=== PATIENT | female | born 1955 | race Caucasian/White ===

== ENCOUNTER 2018-11-03 06:48 | Inpatient (IN) ==
[2018-11-03] MEDS ORDERED: ceFAZolin 2 GM IV; once IV.SIG SCH (08:00)
[2018-11-03] MEDS ORDERED: Chlorhexidine Gluconate 2% 1 Pack (2 Cloths) TOPICAL ONE (08:00)
[2018-11-03] MEDS ORDERED: Metoprolol Tartrate 25 MG Tablet PO ONE (08:00)
[2018-11-03] MEDS ORDERED: Sodium Chlor 0.9% Inj 500 ML IV.CONT ONE (08:00)
[2018-11-03] MEDS ORDERED: Bupivacaine/Epinephrine Inj 0.25% 50 ML Vial ONE (08:57)
[2018-11-03] MEDS ORDERED: ceFAZolin Inj 1 GM Vial (Addvantage) IV.SIG ONE (09:42)
[2018-11-03] MEDS ORDERED: Sodium Chlor 0.9% Inj 200 ML ONE (09:43)
[2018-11-03] MEDS ORDERED: Post-op Orders (for Pharmacy) OTHER STA (11:14)
[2018-11-03] MEDS ORDERED: Naloxone Inj 0.4 MG/ML Vial IV.PUSH PRN (11:19)
[2018-11-03] MEDS ORDERED: Sugammadex Inj 200 MG/2 ML Vial IV.PUSH ONE (11:37)
[2018-11-03] MEDS ORDERED: fentaNYL Citrate Inj 100 MCG/2 ML Ampul ONE (11:37)
--- NOTE | 2018-11-03 11:41 | MP ---
cc: Claus Santamaria MD DATE OF OPERATION: 11/03/2018 DATE OF OPERATION: 11/03/2018. PREOPERATIVE DIAGNOSES: 1. Morbid obesity with a BMI of 50, complicated by essential hypertension. 2. Hiatal hernia. POSTOPERATIVE DIAGNOSES: 1. Morbid obesity with a body mass index of 50, complicated by essential hypertension. 2. Hiatal hernia. PROCEDURES PERFORMED: 1. Laparoscopic vertical sleeve gastrectomy over a 36-Bhut[place] ViSiGi bougie. 2. Laparoscopic hiatal hernia repair. SURGEON: Claus Santamaria MD ANESTHESIA: General endotracheal anesthesia. ESTIMATED BLOOD LOSS: Scant. FINDINGS: Fatty liver, moderate sized hiatal hernia. SPECIMENS: None. COMPLICATIONS: None. PROCEDURE IN DETAIL: The patient was brought to the operating room, placed on operating table in a supine position. Bilateral sequential inflation device placed on the lower extremities. General anesthesia instituted. The abdomen was prepped and draped sterilely. A point 15 cm distal to the xiphoid in the midline anesthetized with 0.25% Marcaine with epinephrine. A skin incision was made. A 5 mL OptiView port placed under direct vision and pneumoperitoneum created. Under direct vision, two 5 mm left lower quadrant, a 15 mm right upper quadrant and a 5 mm right upper quadrant ports were placed. Prior to placement of all ports, the skin and peritoneum anesthetized with 0.25% Marcaine with epinephrine. The patient was placed in reverse Trendelenburg position left side up. The Jeana-flex retractor was placed. The left lobe of the liver was retracted. The vasculature along the greater curve of the stomach was taken down using the harmonic scalpel starting at a distance 5 cm proximal to the pylorus and carried towards the angle of His. The posterior ligamentous attachments sharply . There was a hiatal hernia identified. The left and right crura of the diaphragm were dissected. The GE junction was mobilized into the abdominal cavity. The hernia sac was excised. The crura of the diaphragm was approximated with 0-silk suture in a [id number] manner. The 36-[place] ViSiGi bougie was placed at the beginning of the case. It was placed on suction. Division of the stomach started 5 cm proximal to the pylorus and this was carried towards the angle of His to completely excise approximately 80% of the stomach. This was performed using an echelon flex stapler. The first firing was with a black load, followed by a green load and two gold loads. All staple loads were reinforced with SeamGuard. A distance of 2 cm was left from the angle incisura and the staple line. A distance of 1 cm left from the GE junction and the staple line. The bougie was then removed. Methylene blue was then instilled through the orogastric tube after occluding the pylorus. There was no evidence of extravasation. The gastrocolic ligament was then sutured to the posterior leaflet of the SeamGuard using a 2-0 Vicryl suture in a running manner for the entire staple line. The bleeding points were controlled with Evicel. The excised stomach was removed from the peritoneal cavity in an Endopouch through the 15 mm port site. The fascia at the 15 mm port site approximated using an 0-Vicryl suture. The abdominal wall was then cleaned and a sterile dressing placed. The patient was awakened and taken to the recovery room. MD DANNI Purvis/hemanth , 11:22 AM , 11:26 AM
[2018-11-03] MEDS ORDERED: Acetaminophen-HYDROcodone 325/7.5 Liq 15 ML UDC PO PRN (12:00)
[2018-11-03] MEDS ORDERED: diphenhydrAMINE HCl 12.5 MG/5 ML Elixir UDC PO PRN (12:00)
[2018-11-03] MEDS ORDERED: Morphine Inj 30 MG/30 ML PCA.VIAL PCA PRN (12:00)
[2018-11-03] MEDS: KCL 20 mEq/D5W/NaCl 0.45% Inj 1,000 ML IV.CONT SCH ×2 (12:05→20:36)
[2018-11-03] MEDS ORDERED: Enoxaparin Inj 40 MG/0.4 ML Syringe SQ SCH (15:00)
[2018-11-03] MEDS: ceFAZolin Inj 1 GM in Sodium Chlor 0.9% Inj 100 ML IV.SIG SCH (18:11)
[2018-11-04] MEDS: ceFAZolin Inj 1 GM in Sodium Chlor 0.9% Inj 100 ML IV.SIG SCH ×2 (01:06→08:39)
[2018-11-04 05:16] LABS: Baso % (Auto) 0.2 % (0.0-2.0); Hemoglobin 13.2 gm/dL (11.6-15.3); Lymph % (Auto) 9.6 % (9.0-44.0); Mean Corpuscular Hemoglobin 29.1 pg (27.0-34.0); Mean Corpuscular Volume 88.1 fL (80.0-100.0); Mean Platelet Volume 7.6 fL (7.0-11.0); Mono # (Auto) 0.4 th/mm3 (0.0-0.9); Neut # (Auto) 8.6 th/mm3 (1.8-7.7); Neut % (Auto) 86.2 % (16.0-70.0); Platelet Count 254 th/mm3 (150-450); Red Blood Count 4.55 mil/mm3 (4.00-5.30); Red Cell Distribution Width 13.8 % (11.6-17.2)
[2018-11-04 05:36] LABS: Anion Gap 7 meq/L (5-15); Blood Urea Nitrogen 13 mg/dL (7-18); Calcium 8.3 mg/dL (8.5-10.1); Carbon Dioxide 24.9 meq/L (21.0-32.0); Chloride 106 meq/L (98-107); Glomerular Filtration Rate Greater Than 89 mL/min (>89); Glucose,Random 123 mg/dL (74-106); Magnesium 2.1 mg/dL (1.5-2.5); Potassium 4.2 meq/L (3.5-5.1); Sodium 138 meq/L (136-145)
[2018-11-04] MEDS: KCL 20 mEq/D5W/NaCl 0.45% Inj 1,000 ML IV.CONT SCH ×3 (06:11→13:00)
[2018-11-04 08:29] VITALS: O2SAT 97
[2018-11-04] MEDS: Sucralfate 1 GM Tablet PO SCH ×2 (12:04→15:14)
[2018-11-04 14:00] VITALS: BP 137/67; PULSE 51; RESP 18; TEMP 97.5
--- NOTE | 2018-11-04 15:18 | P.PNGS ---
Subjective Patient reports: pain is less, tolerating liquids well, no flatus (Denies palpitations, dyspnea or chest pain.) Physical Exam Vital signs: Vital Signs 11/03/18 20:00 11/04/18 00:00 11/04/18 04:00 Temperature 97.0 F L 97.1 F L 97.1 F L Pulse Rate 56 L 58 L 55 L Respiratory Rate 19 20 19 Blood Pressure 106/58 L 123/69 132/61 Pulse Oximetry 91 L 95 93 L 11/04/18 08:00 11/04/18 12:00 Temperature 97.7 F 97.5 F L Pulse Rate 66 51 L Respiratory Rate 17 18 Blood Pressure 134/61 137/67 Pulse Oximetry 97 97 Intake & Output 11/03/18 11/04/18 11/04/18 18:59 06:59 18:59 Intake Total 2704 / 2704 1266 / 1266 816 / 816 Output Total 120 / 120 300 / 300 550 / 550 Balance 2584 / 2584 966 / 966 266 / 266 Weight 144.4 kg 144.4 kg Intake: IV 1584 / 1584 916 / 916 816 / 816 NS Inj 200 ML @ 0 mls/hr .ROUTE 200 / 200 .[facility] Rx#:[id number] D5W/1/2NS + KCL 20 mEq Inj 1, 184 / 184 816 / 816 816 / 816 000 ML @ 125 mls/hr IV.CONT . Q8H [facility] Rx#:[id number] LR 1000 mL Inj 1,000 ML @ 30 1000 / 1000 mls/hr IV.CONT .Q24H [facility] Rx#: [id number] Ofirmev Inj 1,000 mg In 100 ml 100 / 100 @ 400 mls/hr IV.SIG [employer] [facility] Rx#:[id number] Ancef Inj 1 GM In NS Inj 100 ML 100 / 100 100 / 100 @ 200 mls/hr IV.SIG Q8H [facility] Rx #:[id number] Oral 120 / 120 350 / 350 Anesthesia Amount 1000 / 1000 Output: Urine 100 / 100 300 / 300 550 / 550 Estimated Blood Loss 20 / 20 Other: # Voids 1 1 Weight On Admission 144.4 kg Narrative: GENERAL: SKIN: Warm and dry. HEAD: Normocephalic. EYES: No scleral icterus. No injection or drainage. NECK: Supple, trachea midline. No JVD or lymphadenopathy. CARDIOVASCULAR: Regular rate and rhythm without murmurs, gallops, or rubs. RESPIRATORY: Breath sounds equal bilaterally. No accessory muscle use. GASTROINTESTINAL: Abdomen soft, normal post operative tenderness, laparoscopic sites WNL, mildly distended. MUSCULOSKELETAL: No cyanosis, or edema. BACK: Nontender without obvious deformity. No CVA tenderness. Results - Labs 11/04/18 04:42 11/04/18 04:42 Laboratory Results - last 24 hr 11/04/18 11/04/18 04:42 04:42 WBC 10.0 RBC 4.55 Hgb 13.2 Hct 40.0 MCV 88.1 MCH 29.1 MCHC 33.0 RDW 13.8 Plt Count 254 MPV 7.6 Neut % (Auto) 86.2 H Lymph % (Auto) 9.6 [place] % (Auto) 4.0 Eos % (Auto) 0.0 Baso % (Auto) 0.2 Neut # (Auto) 8.6 H Lymph # (Auto) 1.0 [place] # (Auto) 0.4 Eos # (Auto) 0.0 Baso # (Auto) 0.0 WBC Differential . Differential Comment Auto diff final Sodium 138 Potassium 4.2 Chloride 106 Carbon Dioxide 24.9 Anion Gap 7 BUN 13 Creatinine 0.47 L Estimated GFR Greater than 89 Random Glucose 123 H Calcium 8.3 L Magnesium 2.1 Assessment and Plan - Plan POD #1 s/p laparoscopic VSG with hiatal hernia repair Tolerating clear 30 ml every 30 min, Ambulating in pan, pain and nausea well controlled. D/C [employer] Advance to 60 ml every 30 min D/C home today if continues to do well Code Status: full Discussed Condition With: patient, , RN
== END 2018-11-04 19:19 | disposition home or self-care (01) | DRG 621 ==
LOC: HSDI 06:48 → N07 13:54
PROVIDERS: ADMIT Surgery; ATTEND Surgery
CPT/HCPCS: 80048; 83735; 85025; 86850; 86900; 86901; 86923; 94150; J0131; J0690; J1650; J2270; J2405; J2765; J3010; J3480; J7120; J8501